=== PATIENT | male | born 1975 | race Caucasian/White ===

== ENCOUNTER 2017-01-03 21:13 | Emergency (ER) | payer SELFPAY ==
[~2017-01-03 21:13] MED LIST: ALBUTEROL17 G1 IH; ATIVAN PO; AURALGAN OTIC S10 ML AD; CEFTIN500 MG PO; DORYX100 M1 PO; MEDROL DOSEPAK4 MG DOB; NEOMYCIN/POLY/7.5 ML OP; NO MEDICATIONS; ORUDIS75 M1 PO; POLYTRIM O10 ML OPTH OU; SUDAFED PE COLD1 TAB PO; VIBRAMYCIN100 M1 PO; VICODIN PO; ZITHROMAX1 G/PKT PO
[2017-01-03] MEDS ORDERED: CAPSICUM OLEORE TOP (21:38)
[2017-01-03] MEDS ORDERED: VALTREX PO (21:38)
== END 2017-01-03 22:13 | disposition home or self-care (01) ==
LOC: SED 21:13
DX: B02.9 Zoster without complications (principal); R03.0 Elevated blood-pressure reading, without diagnosis of hypertension; J45.909 Unspecified asthma, uncomplicated; F17.200 Nicotine dependence, unspecified, uncomplicated; Z88.0 Allergy status to penicillin
CPT/HCPCS: 99282